=== PATIENT | female | born 1975 | race Caucasian/White ===

== ENCOUNTER 2022-07-22 02:00 | Emergency (ER) | payer BC ==
[2022-07-22] MEDS ORDERED: Compazine 10 MG/2 ML IV ONE (02:22)
[2022-07-22] MEDS ORDERED: TYLENOL 325 MG PO ONE (02:23)
[2022-07-22] MEDS ORDERED: TORAdol 30 mg Injection IV ONE (02:23)
[2022-07-22] MEDS ORDERED: Sodium Chloride 0.9% 1000 ML 1,000 ML IV STA (02:24)
[2022-07-22] MEDS ORDERED: BENADRYL 50 MG/ML IV ONE (02:24)
[2022-07-22] MEDS ORDERED: TYLENOL 325 MG ONE (02:28)
[2022-07-22] MEDS ORDERED: BENADRYL 50 MG/ML ONE (02:28)
[2022-07-22] MEDS ORDERED: TORAdol 30 mg Injection ONE (02:28)
[2022-07-22] MEDS ORDERED: Compazine 10 MG/2 ML ONE (02:29)
--- NOTE | 2022-07-22 02:33 | ERPHSYRPT ---
- History of Present Illness Time Seen by Provider: 07/22/22 02:29 Source: patient Exam Limitations: no limitations Patient Subjective Stated Complaint: pt states that she has had a headache for the past 2 days. pt states that she has been vomiting and having nosebleeds too Triage Nursing Assessment: pt ambulated into the er; pt is axo x4; pt is tearful and anxious; c/o headache, vomiting, nosebleeds; no active epistaxis present; pupils 3 mm and PERRL; active bowel sounds; no respiratory distress present; skin PDW; hypertensive Physician History: Patient is a 46-year-old female with a history of migraines presents to our ED for evaluation of a 2-day history of a migraine. Patient concerned as her blood pressure is elevated. Patient states she has been nauseous. She vomited once. Emesis was nonbloody nonbilious. She also had 1 episode of loose stools. No associated chest pain or shortness of breath. Symptoms are constant. Symptoms are moderate in intensity. No specific worsening improving factors. No associated numbness tingling or weakness. No focal or lateralizing symptoms. Patient states otherwise healthy. She voices no other complaints or concerns at this time. Portions of this note were created with voice recognition technology. There may be grammatical, spelling, punctuation or sound alike errors Timing/Duration: yesterday Severity: moderate Modifying Factors: Improves With: other (Light exposure) Associated Symptoms: nausea, vomiting (Diarrhea), other Allergies/Adverse Reactions: clarithromycin [From Biaxin] Adverse Reaction (Verified 07/22/22 02:05) Nausea Home Medications: No Reportable Medications [No Reported Medications] 07/22/22 [History] Hx Tetanus, Diphtheria Vaccination/Date Given: No Hx Influenza Vaccination/Date Given: No Hx Pneumococcal Vaccination/Date Given: No Travel Risk - International Travel Have you traveled outside of the country in past 3 weeks: No - Coronavirus Screening Are you exhibiting any of the following symptoms?: No Close contact with a COVID-19 positive Pt in past 14-21 Days: No - Vaccine Status Have you recieved a Covid-19 vaccination: Yes Assistant Project Engineer: [employer] - Review of Systems Constitutional: No Symptoms, No Fever, No Chills Eyes: No Symptoms Ears, Nose, & Throat: No Symptoms Respiratory: No Symptoms, No Cough, No Dyspnea Cardiac: No Symptoms, No Chest Pain, No Edema, No Syncope Abdominal/Gastrointestinal: No Symptoms, No Abdominal Pain, No Nausea, No Vomiting, No Diarrhea Genitourinary Symptoms: No Symptoms, No Dysuria Musculoskeletal: No Symptoms, No Back Pain, No Neck Pain Skin: No Symptoms, No Rash Neurological: No Symptoms, No Dizziness, No Focal Weakness, No Sensory Changes Psychological: No Symptoms Endocrine: No Symptoms Hematologic/Lymphatic: No Symptoms Immunological/Allergic: No Symptoms All Other Systems: Reviewed and Negative - Past Medical History Pertinent Past Medical History: No - Past Surgical History Past Surgical History: Yes Female Surgical History: Section Other Surgical History: c-sections x3, breast augmentation, tummy tuck - Social History Smoking Status: Never smoker Exposure to second hand smoke: No Drug Use: none Patient Lives Alone: No - Female History Hx Now: No - Nursing Vital Signs Nursing Vital Signs: Initial Vital Signs Temperature 97.3 F 07/22/22 02:05 Pulse Rate 80 07/22/22 02:05 Respiratory Rate 18 07/22/22 02:05 Blood Pressure 189/133 07/22/22 02:05 O2 Sat by Pulse Oximetry 100 07/22/22 02:05 Pain Scale Pain Intensity 5 - Physical Exam General Appearance: no apparent distress, alert Eye Exam: PERRL/EOMI, eyes nml inspection Ears, Nose, Throat Exam: normal ENT inspection, TMs normal, pharynx normal, moist mucous membranes Neck Exam: normal inspection, non-tender, supple, full range of motion Respiratory Exam: normal breath sounds, lungs clear, airway intact, No respiratory distress Cardiovascular Exam: regular rate/rhythm, normal heart sounds, normal peripheral pulses Gastrointestinal/Abdomen Exam: soft, normal bowel sounds, No tenderness, No mass Back Exam: normal inspection, normal range of motion, No CVA tenderness, No vertebral tenderness Extremity Exam: normal inspection, normal range of motion, pelvis stable Neurologic Exam: alert, oriented x 3, cooperative, normal mood/affect, nml cerebellar function, nml station & gait, sensation nml, No motor deficits Skin Exam: normal color, warm, dry, No rash Lymphatic Exam: No adenopathy SpO2 Interpretation: normal SpO2: 100 O2 Delivery: Room Air - Course Nursing assessment & vital signs reviewed: Yes Ordered Tests: Medication Summary Discontinued Medications Generic Name Dose Route Start Last Admin Trade Name Freq PRN Reason Stop Dose Admin Acetaminophen 975 mg 07/22/22 02:23 07/22/22 02:30 Acetaminophen 325 Mg Tablet PO 07/22/22 02:24 975 mg STAT ONE Administration Acetaminophen Confirm 07/22/22 02:28 Acetaminophen 325 Mg Tablet Administered 07/22/22 02:29 Dose 975 mg .ROUTE .STK-MED ONE Diphenhydramine HCl 25 mg 07/22/22 02:24 07/22/22 02:30 Diphenhydramine Hcl 50 Mg/Ml Vial IV 07/22/22 02:25 25 mg STAT ONE Administration Diphenhydramine HCl Confirm 07/22/22 02:28 Diphenhydramine Hcl 50 Mg/Ml Vial Administered 07/22/22 02:29 Dose 50 mg .ROUTE .STK-MED ONE Sodium Chloride 1,000 mls @ 999 mls/hr 07/22/22 02:24 07/22/22 02:36 Sodium Chloride 0.9% 1000 Ml IV 07/22/22 03:24 999 mls/hr .Q1H1M STA Administration Sodium Chloride Confirm 07/22/22 02:34 Sodium Chloride 0.9% 1000 Ml Administered 07/22/22 02:35 Dose 1,000 mls @ ud .ROUTE .STK-MED ONE Ketorolac Tromethamine 30 mg 07/22/22 02:23 07/22/22 02:30 Ketorolac Tromethamine 30 Mg/Ml Inj IV 07/22/22 02:24 30 mg STAT ONE Administration Ketorolac Tromethamine Confirm 07/22/22 02:28 Ketorolac Tromethamine 30 Mg/Ml Inj Administered 07/22/22 02:29 Dose 30 mg .ROUTE .STK-MED ONE Prochlorperazine Edisylate 10 mg 07/22/22 02:22 07/22/22 02:30 Prochlorperazine Edisylate 10 Mg/2 Ml Vial IV 07/22/22 02:23 10 mg STAT ONE Administration Prochlorperazine Edisylate Confirm 07/22/22 02:29 Prochlorperazine Edisylate 10 Mg/2 Ml Vial Administered 07/22/22 02:30 Dose 10 mg .ROUTE .STK-MED ONE - Progress Progress: improved Progress Note: Patient is a 46-year-old female presents to our ED for treatment of a migraine headache. Patient's headache is typical of her usual migraine headaches. No neurological findings. No fever. No trauma. No neck pain. Headache was gradual in onset. Physical exam reveals a normal neurologic exam. Patient experienced some photophobia which is typical of her migraine per patient. Patient received Benadryl Compazine normal saline Toradol and oral Tylenol. Pat ient reassessed. Headache significantly improved. Patient that she is ready for discharge. We will send patient home at this time. Patient agrees to follow-up with her primary care doctor within 48 hours for reevaluation. Complexity of problem addressed is low acute uncomplicated. Complex of data reviewed and analyzed is none. No specialized testing ordered. Diagnosis made based on history and physical exam. Risk of complication and or risk morbidity/mortality of patient management is moderate. Patient received intravenous Benadryl Compazine Toradol normal saline. We will discharge patient home. Patient agrees to follow-up with her primary care doctor for reevaluation. No social determinants of health present to impede follow-up. Vital stable. Patient originally came in with an excessively elevated blood pressure likely due to discomfort from migraine headache. Patient blood pressure significantly improved down to 146/91. Patient will follow-up with her primary care doctor within 48 hours for reevaluation. Portions of this note were created with voice recognition technology. There may be grammatical, spelling, punctuation or sound alike errors 07/22/22 03:32 Counseled pt/family regarding: diagnosis, need for follow-up - Departure Departure Disposition: Home Clinical Impression: Migraine Condition: Stable Critical Care Time: No Referrals: DOCTOR,NO FAMILY [Primary Care Provider] - Follow up/PCP as directed CARLOS JENKINS MD [ACTIVE STAFF] - Follow up/PCP as directed Additional Instructions: Discharge/Care Plan VINICIUSGLORIANATHENHER SEARS was seen on 07/22/22 in the Emergency Room. The patient was counseled regarding Diagnosis,Lab results, Imaging studies, need for follow up and when to return to the Emergency Room. Prescriptions given: Discharge Note I have spoken with the patient and/or caregivers. I have explained the patient's condition, diagnosis and treatment plan based on the information available to me at this time. I have answered the patient's and/or caregiver's questions and addressed any concerns. The patient and/or caregivers have as good understanding of the patient's diagnosis, condition and treatment plan as can be expected at this point. The vital signs have been stable. The patient's condition is stable and appropriate for discharge from the emergency department. The patient will pursue further outpatient evaluation with the primary care physician or other designated or consulting physician as outlined in the discharge instructions. The patient and/or caregivers are agreeable to this plan of care and follow-up instructions have been explained in detail. The patient and/or caregivers have received these instruction. The patient/and or caregivers are aware that any significant change in condition or worsening of symptoms should prompt an immediate return to this or the closest emergency department or call 911.
[2022-07-22] MEDS ORDERED: Sodium Chloride 0.9% 1000 ML 1,000 ML ONE (02:34)
[2022-07-22 03:36] VITALS: BP 152/108; PULSE 81
[2022-07-22 03:38] VITALS: O2SAT 100
== END 2022-07-22 03:45 | disposition home or self-care (01) ==
LOC: ED 02:00
DX: G43.909 Migraine, unspecified, not intractable, without status migrainosus (principal); R11.2 Nausea with vomiting, unspecified; R19.7 Diarrhea, unspecified
CPT/HCPCS: 36000; 96360; 96374; 96375; 99284; J1200; J1885; A9270-GY